=== PATIENT | female | born 1955 | race Caucasian/White ===

== ENCOUNTER 2017-08-21 17:03 | Emergency (ER) | payer OTHER ==
[~2017-08-21] VITALS: Ht 172.7 cm; Wt 81.7 kg
[2017-08-21] MEDS ORDERED: SIMVASTATIN5 MG PO (17:14)
[2017-08-21] MEDS ORDERED: CALCIUM500 MG PO (17:14)
[2017-08-21] MEDS ORDERED: MULTIVITAMINS1 EAC7 PO (17:15)
== END 2017-08-21 18:42 | disposition home or self-care (01) ==
LOC: ED 17:03
DX: R10.9 Unspecified abdominal pain (principal); F17.200 Nicotine dependence, unspecified, uncomplicated; Z79.899 Other long term (current) drug therapy
CPT/HCPCS: 71046; 99283

== ENCOUNTER 2022-04-20 15:27 | Inpatient (IN) | payer OTHER ==
[~2022-04-20] VITALS: Ht 167.6 cm; Wt 73.3 kg
[~2022-04-20 15:27] MED LIST: K-TAB ER20 MEQ PO; LASIX20 MG PO; OMEPRAZOLE20 MG PO; SIMVASTATIN5 MG PO
--- OUTSIDE RECORDS SUMMARY | 2022-04-20 15:34 | XMS ---
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 Care Guidelines exist for the following facilities: [facility] ( 08/19/2019 ) [place] VISIT COUNT (12 MO.) 2 [facility] TOTAL 2 NOTE: Visits indicate total known visits. ED/UCC VISIT TRACKING (12 MO.) 04/20/2022 15:28 [facility] [place] TYPE: Emergency COMPLAINT: - LOW O2 SATS 04/19/2022 17:30 [facility] [place] TYPE: Emergency COMPLAINT: - WEAKNESS, SHORTNESS OF BREATH INPATIENT VISIT TRACKING (12 MO.) No inpatient visits to display in this time frame [email or web address]
--- NOTE | 2022-04-20 21:30 | NUR ---
bedside report received from augustin arguello oriented to room. call light in reach. head to toe 2 rn skin assessment complete. large bruise noted to right ac-related to previosu iv start. no s/sx of skin breakdown noted to buttocks. tele#[address], nsr. spo2 low 90's on 4lnc. rt agustina now in room for breathing treatment. will continue to monitor.
--- NOTE | 2022-04-20 21:45 | NUR ---
IN TO ASSIST WITH VITALS, PT PLACED ON O2 MONITORING VIA TELE, FAMILY IN RM
--- NOTE | 2022-04-20 23:26 | NUR ---
IN PT ROOM FOR CHIEF EMBALMER AND ASSESSMENT. PT DROWSY BUT AWAKENS TO VOICE. PT A&O X4. PT LUNGS ARE DIM THROUGHOUT W/WHEEZES PRESENT IN RUL AND RLL, PT HAS OCCASIONAL NONPRODUCTIVE COUGH. PT REPORTS NO PAIN, NAUSEA, DIZZINESS, N/T, OR SOB AT THIS TIME. PT IS CURRENTLY ON 4L NC. PULSES PRESENT THROUGHOUT, BOWEL TONES ACTIVE X4. NO SIGNS OF SKIN BREAKDOWN AT THIS TIME, PT IS ABLE TO MOVE SELF IN BED, SKIN IS PINK/DRY/INTACT. DAUGHTER AT BEDSIDE IN ROOM, WARM BLANKETS AND PILLOW PROVIDED. PT IS ON TELE #3 W/O2 SATS >90% AND SR. IV SITE SALINE LOCKED, WNL. CALL LIGHT WITHIN REACH, NO FURTHER NEEDS AT THIS TIME.
--- NOTE | 2022-04-21 00:12 | NUR ---
pt UP AND ASSISTED TO BATHROOM, BACK TO BED. REMAINING ADMISSION QUESTIONS COMPLETED BY THIS RN. DAUGHTER CAITLIN REMAINS AT BEDSIDE. CALL LIGHT IN REACH.
--- NOTE | 2022-04-21 02:00 | NUR ---
IN PT ROOM FOR ASSESSMENT AND VS. PT DROWSY BUT AWAKENS TO VOICE. NO ACUTE CHANGES FROM PREVIOUS ASSESSMENT. CALL LIGHT WITHIN REACH, NO FURTHER NEEDS AT THIS TIME.
--- NOTE | 2022-04-21 02:58 | NUR ---
spo2 sensor loose w/ poor reading, back in place with red sensor light on, spo2 sustaining at 92-93% on 3.5lnc. pt up to void, 400mls output, back to bed. daughter remains in room, sleeping on cough. call light in reach.
--- NOTE | 2022-04-21 03:55 | NUR ---
IN PT ROOM D/T PROBE NOT READING CORRECTLY. PT DROWSY BUT ALERT TO VOICE. NEW PROBE PLACED AND READING CORRECLTY ON TELE. CALL LIGHT WITHIN REACH. WATER PROVIDED TO DAUGHTER SLEEPING ON COUCH.
--- NOTE | 2022-04-21 05:14 | NUR ---
PT RESTING W/EYES CLOSED ON RT SIDE. RESPIRATIONS ARE EVEN AND UNLABORED, NO SIGNS OF DISTRESS. TELE IN PLACE. 4L OF O2 VIA NC IN PLACE AT THIS TIME. CALL LIGHT WITHIN REACH.
--- NOTE | 2022-04-21 07:10 | NUR ---
BEDSIDE HANDOFF REPORT RECEIVED FROM SINK MAKER RN. PT SLEEPING, O2 SATS 92% ON 6L NC.
--- NOTE | 2022-04-21 09:05 | NUR ---
SITTING IN BED VISITING WITH DAUGHTER. THE PATIENT PLANS TO GO HOME WITH HER DAUGHTER. PATIENT HAS NO MONEY ISSUES AND ABLE TO BUY FOOB AND MAKE HOUSE PAYMENT. DOES NOT NEED DME AT THIS TIME. HAS STAIRS AT HER HOME AND SHE IS ABLE TO GO UP AND DOWN TO HER LIVING SPACE. STATES SHE HAS NO DISCHARGE NEEDS AT THIS TIME.
--- NOTE | 2022-04-21 09:22 | NUR ---
PT RESTIGN IN BED, EATING BREAKFAST, GOOD APPETITE. TP ON 6L NC, O2 SATS 93%, ATTEMPTED TO WEAN TO 5L NC. LUNG SOUNDS CLEAR WITH DIMINISHED BASED, DENIES SOB. BOWEL TONES ACTIVE. CMS INTACT, PT WITH 1+ EDEMA IN BLE, PULSES STRONG. PT ON TELE #3, SINUS RHYTHM. PT SBA TO BATHROOM, DENIES SOB WITH ACTIVITY. PT GIVEN MEDS PER EMAR. PT DENIES OTHER NEEDS AT THIS TIME.
--- NOTE | 2022-04-21 09:50 | NUR ---
PT IN BED. DAUGHTER IN ROOM. VITALS AND IS AND OS COMPLETE. PT REQ COFFEE. RN OK. PT GIVEN COFFEE. NO FURTHER NEEDS. CALL LIGHT WITHIN REACH.
--- NOTE | 2022-04-21 11:41 | NUR ---
PT WITH COMPLAINT OF RIGHT ELBOW PAIN, BRUISE PRESENT FROM PREVIOUS IV, ICE PACK PROVIDED. PT PROVIDED WITH CHF EDUCATION AND MAGNET. PT DENIES OTHER NEEDS AT THIS TIME.
[2022-04-21] MEDS ORDERED: CALCIUM500 MG PO (11:46)
[2022-04-21] MEDS ORDERED: ONE DAILY COMP1 EACH PO (11:46)
[2022-04-21] MEDS ORDERED: ZINC50 M2 PO (11:47)
--- NOTE | 2022-04-21 11:49 | NUR ---
MED REC COMPLETE
--- NOTE | 2022-04-21 12:04 | NUR ---
PT in bed watching TV. Daughter in room appeared to be settling in for a nap. Short visit. Prayed for healing, peace and comfort.
--- NOTE | 2022-04-21 14:28 | NUR ---
PULSE OX SHOWING PT SATURATIONS AT 84%. THIS NURSE TO BEDSIDE TO FIND PT SITTING IN BED. 5L NC IN PLACE. PT DENIES SOB, LIPS ARE PURPLE IN COLOR. PT INSTRUCTED TO BREATH THROUGH NOSE, O2 INCREASED TO 6L. SATURATIONS CAME UP TO 88-90% WITH DEEP BRETHING ENCOURAGED. HUMIDIFICATION APPLIED TO NC.
--- NOTE | 2022-04-21 16:19 | NUR ---
PTS DAUGHTER HAD RETURNED, UPDATED ON PLAN OF CARE AND DR. AVILES'S EVALUATION. ALL QUESTIONS ANSWERED.
--- NOTE | 2022-04-21 19:50 | NUR ---
pt amb with this rn to bathroom after rt changed her nc to 6L hfnc. pt void 400 ml yellow urine and walked back to bed with this rn, call light in reach. denies needs
--- NOTE | 2022-04-21 20:45 | NUR ---
PTs DAUGTHER IN RM, PT ASSISTED INTO THE SHOWER, DAUGTHER IN TO ASSIST PT FURTHER
--- NOTE | 2022-04-21 21:55 | NUR ---
pt resting in bed with family in room visiting, vitals, i/o and assessment completed. pt low oxygen on 6l hfnc 89% enc tcdb and use of is and increase to 97%. congratulated pt on 2 days of no smoking! reviewed low salt and fluid restrictions - and reviewed chf packet at bedside. ble elevated in bed, pt has call light in reach and denies needs.
--- NOTE | 2022-04-21 23:25 | NUR ---
pt eyes closed, resp even, call light in reach.
--- NOTE | 2022-04-22 03:00 | NUR ---
pt awake, rn in for assessment, vitals, i/o. pt enc deep breathing call light in reach. denies needs.
--- NOTE | 2022-04-22 06:15 | NUR ---
ROUNDING ON PT - ON RIGHT SIDE IN BED, EYES CLOSE, RESP EVEN, OXYGEN ON 6lHFNC, CALL LIGHT IN REACH.
--- NOTE | 2022-04-22 07:15 | NUR ---
BEDSIDE HANDOFF REPORT RECEIVED FROM DECORATOR STREET AND BUILDING RN. PT SLEEPING, LEFT UNDISTURBED.
--- NOTE | 2022-04-22 09:15 | NUR ---
PT RESTING IN BED. PT DENIES SOB, O2 SATS 86% ON 6L HIGH FLOW, INCREASED TO 7L WITH O2 SATS UP TO 90%, PT STATES SHE FEEL S SHE IS A MOUTH BREATHER, ATTEMPTED OXYMASK AT 7L AND O2 SATS DROPPED TO 88%, CHANGED BACK TO HIGH FLOW NC AT 7L. LUNG SOUNDS WITH CRACKLES IN BILATERAL BASES. BOWEL TONES ACTIVE, DENIES NAUSEA. PT WITH EDEMA TO BLE 1+, SLIGHTLY MORE IN LEFT LEG. IV SALINE LOCKED. DISCUSSED PLAN OF CARE FOR THE DAY. PT DENIES OTHER NEEDS AT THIS TIME.
--- NOTE | 2022-04-22 09:30 | NUR ---
DR. AVILES NOTIFIED OF O2 SATS 86% ON 6L AND INCREASED O2 TO 7L. DR. AVILES WILL EVALUATE PT.
--- NOTE | 2022-04-22 11:15 | NUR ---
IV MAG STARTED
--- NOTE | 2022-04-22 13:53 | NUR ---
PT LAYING IN BED. VITALS AND IS AND OS COMPLETE. RN IN ROOM. NO FURTHER NEEDS. CALL LIGHT WITHIN REACH
--- NOTE | 2022-04-22 16:30 | NUR ---
PT RESTING IN BED. PT HAS BEEN INDEPENDENT IN ROOM, WALKING TO BATHROOM. VOIDING QS. PT O2 SATS 95-96% ON 6L NC, WEANED TO 5L. LUNG SOUNDS CLEAR IN UPPERS WITH FEW CRACKLE SIN BASES. PT CONTINUES TO DENY SOB. EDEMA TO BLE IMPROVING 1+. PT AND DAUGHTER INQUIRING ABOUT LATERAL TRANSFER OF CARE SINCE THEY ARE FROM [place], DR. AVILES NOTIFIED OF PTS WISHES. PT WITH DRY NARE, REQUESTING NASAL SPRAY, NIO ORDER FOR NORMAL SALINE NASAL SPRAY ENTERED.
--- NOTE | 2022-04-22 17:58 | NUR ---
PT PROVIDED WITH NASAL SPRAY REQUESTED. PT CONTINUES TO BE ON 5L HIGH FLOW NC, O2 SATS 88-91%. DISCUSSED WITH PT OPTIONS FOR TRANSFER, PT AGREEABLE TO STAY THROUGH WEEKEND AND REEVALUATE FURTHER ON SUNDAY. PT UNDERSTANDS SHE MAY LEAVE AMA BUT DOES NOT WISH TO DO SO AT THIS TIME. PT DENIES OTHER NEEDS AT THIS TIME.
--- NOTE | 2022-04-22 19:01 | EKG ---
[facility] [address] [place] [address] Signed Sinus tachycardia Biatrial enlargement Abnormal ECG When compared with ECG of 20-APR-2022 00:14, (Unconfirmed) QRS axis shifted left Confirmed by DANIEL AVILES MD ([id number]) on 04/22/2022 7:01:36 PM Electronically Signed By: DANIEL AVILES MD 04/22/221900 PATIENT NAME: RICK PARRISH Electrocardiogram DATE OF : 59 PHYSICIAN: DANIEL AVILES MD REPORT #: [id number] REPORT IS CONFIDENTIAL AND NOT TO BE RELEASED WITHOUT AUTHORIZATION
--- NOTE | 2022-04-22 19:15 | NUR ---
report from anna rn, pt on 5l nc oxygen, daily wt - copd/chf, sl iv, fluid restriction and 2 gm na diet. call light in reach.
--- NOTE | 2022-04-22 20:30 | NUR ---
pt sitting on couch with family 5l nc - pt sats were 85% with vitals, increased to 6L nc after pt could not bring them above 90 with purposeful breathing over 1 min. pt reports she lives in [facility]. and has a dr appt with Jennifer frazier next month to establish care - would like her records sent there as well - is in [place]. pt talkative, reports improvement in the way she feels, lungs are dim, legs look a bit better with regards to edema. pt void well and amb in room on own. family in room.
--- NOTE | 2022-04-22 22:59 | NUR ---
PT IN BED, EYES CLOSED, RESP RATE EVEN, CALL LIGHT IN REACH.
--- NOTE | 2022-04-23 01:30 | NUR ---
NO CHANGES, PT EYES CLOSED, RESTING ON SIDE, RESP EVEN, OXYGEN ON 6L NC.
--- NOTE | 2022-04-23 05:55 | NUR ---
PT UP TO STAND SCALE FOR DAILY WT, LESS TODAY - IMPROVING. PT REPORTS FEELING BETTER. VITALS, i/O, BACK TO BED, WITH CALL LIGHT IN REACH.
--- NOTE | 2022-04-23 07:05 | NUR ---
HANDOFF REPORT RECEIVDE FROM RN RECOVERY RN. PT SLEEPING, LEFT UNDISTRUBED.
--- NOTE | 2022-04-23 09:20 | NUR ---
PT RESTING IN BED. PT ON 11L NC, RECEIVED IN REPORT THAT PT WAS ON 6L, O2 SATS 95%, TITRATED BACK TO 6L, O2 SATS 90%. LUNG SOUNDS CLEAR, PT DENIES SOB. PT TOLERATING DIET, BOWEL TONES ACTIVE, DENIES NAUSEA. CMS INTACT, TRACE EDEMA IN BLE. DISCUSSED PLAN OF CARE FOR THE DAY, PT DENIES OTHER NEEDS AT THIS TIME.
--- NOTE | 2022-04-23 10:30 | NUR ---
PT WENT FOR CT SCAN AND HAS RETURNED TO ROOM.
--- NOTE | 2022-04-23 11:15 | NUR ---
PT COMPLETED WITH SHOWER, SITTING IN CHAIR, O2 SATS 92-94% ON 6L NC. PT STATES SHE DID NOT FEEL SOB DURING SHOWER. LINENS CHANGED. PT DENIES OTHER NEEDS AT THIS TIME.
--- NOTE | 2022-04-23 13:19 | NUR ---
ASSISTED PT TO WALK IN [place]. PT ABLE TO COMPLETE 1 LARGE LAP AROUND NURSING FLOOR. O2 SATS 94-96% ON 6L NC FOR MAJORITY OF WALK, LAST 30 SECONDS 02 SATS DROPPED TO 91%. PT NOW SITTIN GIN CHAIR, O2 DECREASED TO 5L NC. PT PROVIDED WITH WARM BLANKET, DENIES OTHER NEEDS AT THIS TIME.
--- NOTE | 2022-04-23 16:59 | NUR ---
PT SITTING IN CHAIR, TALKING ON PHONE. O2 SATS 93-94% ON 3.5LN, WEANED TO 3L. PT DENIES OTHER NEEDS AT THIS TIME.
--- NOTE | 2022-04-23 19:30 | NUR ---
BEDSIDE REPORT FROM LATHA LARRY, PT SITTING IN CHAIR TALKATIVE, 02 SAT ON 3L 94%. PT DAUGHTER IN ROOM - NO COMPLAINTS, CALL LIGHT IN REACH.
--- NOTE | 2022-04-23 22:45 | NUR ---
IN BED, FAMILY IN ROOM, EYES CLOSED, CALL LIGHT IN REACH RESP EVEN - 4L NC.
--- NOTE | 2022-04-24 03:44 | NUR ---
NO CHANGES, FAMILY IN ROOM, CALL LIGHT IN REACH - 4L NC OXYGEN EYES CLOSED, REAP EVEN.
--- NOTE | 2022-04-24 06:16 | NUR ---
PT IN BED. VITALS AND IS AND OS COMPLETE. PT WAS ASKED IF SHE NEEDED TO USE BATHROOM. INITIALLY PT DECLINED. AFTER VITALS WERE COMPLETE, PT STATED SHE NEEDED TO USE THE BATHROOM. PT UP TO BATHROOM INDEP. PT BACK TO BED PT DECLINED TO GET UP TO CHAIR. NO FURTHER NEEDS. CALL LIGHT WITHIN REACH.
--- NOTE | 2022-04-24 06:22 | NUR ---
VITALS, ASSESSMENT DONE - ABLE TO REDUCE OXYGEN NC TO 2L NC SATS 92-97 % WHILE RN IN ROOM CHARTING AND PT RESTING ON RIGHT SIDE. CALL LIGHT IN REACH.
--- NOTE | 2022-04-24 08:18 | NUR ---
Pt sitting up in bed watching game shows on her phone. denies concerns att, given coffee and marked on fr. Lungs coarse in bases but clear on top. States she has been getting white stuff up when she coughs.
--- NOTE | 2022-04-24 10:14 | NUR ---
PT GETTING VS AND I&O. KNOWS WHEN THE MACHINE BEEPS SHE NEEDS TO STOP TALKING AND TAKE A COUPLE OF DEEP BREATHS THROUGH NOSE\NC. ADMINISTERED SCHEDULED AB.
--- NOTE | 2022-04-24 10:40 | NUR ---
PT WOULD LIKE NICOTINE REPLACEMENT TO GO HOME WITH SHE IS VERY MOTIVATED TO QUIT SMOKING AND IT HAS WORKED FOR HER HERE.
[2022-04-24] MEDS ORDERED: DOXYCYCLINE HY100 MG PO (11:32)
[2022-04-24] MEDS ORDERED: NICOTINE PATCH1 EACH TD (11:33)
[2022-04-24] MEDS ORDERED: NICOTINE LOZENGE4 MG BUCCAL (11:33)
[2022-04-24] MEDS ORDERED: TORSEMIDE20 MG PO (11:34)
[2022-04-24] MEDS ORDERED: KLOR-CON 1010 MEQ PO (11:34)
[2022-04-24] MEDS ORDERED: BUDESONIDE0.5 MG/2 M INH (11:35)
[2022-04-24] MEDS ORDERED: METOPROLOL SUCC25 MG PO (11:37)
[2022-04-24] MEDS ORDERED: PREDNISONE20 MG PO (11:38)
[2022-04-24] MEDS ORDERED: IPRAT-ALBUT 0.5-3 ML INH (11:39)
[2022-04-24] MEDS ORDERED: NEBULIZER UNIT XX (11:40)
--- NOTE | 2022-04-24 12:04 | NUR ---
DEMOGRAPHICS, O2 ORDER AND QUALIFER, NEBULIZER ORDER AND MEDICATIONS FAXED TO [facility] AT [phone].
--- NOTE | 2022-04-24 14:50 | NUR ---
PT SITTING IN CHAIR, DRESSED AND READY FOR DC. PT SEEMS EXCITED, VISITING WITH FAMILY. GAVE BLESSING
== END 2022-04-24 13:35 | disposition home or self-care (01) | DRG 291 ==
LOC: ED 15:27 → MS 20:14
PROVIDERS: ADMIT Internal Medicine; ATTEND Internal Medicine
DX: I50.43 Acute on chronic combined systolic (congestive) and diastolic (congestive) heart failure (principal); J96.21 Acute and chronic respiratory failure with hypoxia; J96.22 Acute and chronic respiratory failure with hypercapnia; Z20.822 Contact with and (suspected) exposure to COVID-19; J43.9 Emphysema, unspecified; D75.1 Secondary polycythemia; F17.210 Nicotine dependence, cigarettes, uncomplicated; Z71.6 Tobacco abuse counseling; Z79.52 Long term (current) use of systemic steroids; Z79.899 Other long term (current) drug therapy
CPT/HCPCS: 36415; 36600; 71045; 71260; 80048; 80053; 81003; 82803; 83735; 83880; 85025; 85060; 87502; 93005; 93010; 93306; 94640; 94760; 94761; 99406; A9270; J1650; J1940; J2930; J3475; Q9967; U0003